=== PATIENT | male | born 1940 | race Caucasian/White ===

== ENCOUNTER → 2016-12-15 | Outpatient (CLI) | payer OTHER ==
[~2016-12-15] MED LIST: ASPI81TA28 PO; HYDR25TA4 PO; METO-217 PO; OMEGCAP2 PO; PERFLUTREN LIPID MICROSPHERE (DEFINITY) IV ONE; PRED1SUS3; SIMV10TA2 PO; TPRSR/50 PO
--- NOTE | 2016-12-15 12:32 | EXERCISE STRESS ECHO ---
*NOTICE TO RECEIVING DEMOCRAT AGENCY This information is strictly Confidential and protected under [place] law. [place] law prohibits you from making any further disclosure of this information unless further disclosure is expressly permitted by the written consent of the person to whom it pertains or is authorized by law. A general authorization for the release of medical or other information is not sufficient for this purpose. Hospital accepts no responsibility if the information is made available to any other person, INCLUDING THE PATIENT. Interpretation Summary * Name: EFRAÍN NEWTON Study Date: 12/15/2016 09:38 AM BP: 200/90 mmHg * Patient Location: [facility] HR: 48 * : 1940 (M/d/yyyy) Gender: Male Height: 65 in * Age: 76 yrs Ethnicity: CA Weight: 175 lb * Ordering Physician: Enrique Kelly * Referring Physician: Enrique Kelly * Performed By: Adrianna Cueva RDCS * * Reason For Study: CAD * BSA: 1.9 m2 * History: CAD * -- Conclusions -- * Normal stress echocardiogram at 9.1 METS and a peak heart rate of 70% maximum predicted. * No exercise induced chest pain. * No ECG changes over the baseline abnormality. * Baseline echocardiogram notes normal left ventricular systolic function, moderate aortic stenosis, and mild aortic insufficiency. Procedure Details * ECHOEX, CPT #21751 * A contrast injection of Definity was performed to improve assessment of LV function. * Contrast was injected into an intravenous site in the left arm. * One vial of Definity ultrasound contrast was diluted in normal saline to a total volume of 10 ml. A total of '4' ml of solution was administered during imaging. * Lot # [id number] of Definity utilized for procedure. * Expiration date 1 DEC 19. * The attending nurse who injected the contrast agent was MARY MACHUCA RN. Left Ventricle * The left ventricle is normal in size. * There is moderate concentric left ventricular hypertrophy. * Ejection Fraction = 50-55%. * Resting wall motion: Normal. Stress wall motion: Appropriate increase in Left ventricular systolic function and decrease in cavity size. No stress induced segmental wall motion abnormalities. Right Ventricle * The right ventricle is not well visualized. * The right ventricular systolic function is normal as assessed by tricuspid annular plane systolic excursion (TAPSE) (normal >1.5 cm). Atria * The left atrial size is normal. * Right atrial size is normal. * There is no evidence of atrial septal defect, but resolution does not allow assessment for a patent foramen ovale. * Lipomatous hypertrophy of the interatrial septum is noted. Mitral Valve * The mitral valve is grossly normal. * There is no mitral valve stenosis. * There is mild mitral regurgitation. Tricuspid Valve * The tricuspid valve is not well visualized, but is grossly normal. * There is no tricuspid stenosis. * There is trace tricuspid regurgitation. Aortic Valve * The aortic valve is trileaflet. * Moderate valvular aortic stenosis. * Mild aortic regurgitation. Pulmonic Valve * The pulmonary valve is not well seen, but the Doppler examination is normal without significant regurgitation or stenosis. Great Vessels * The aortic root is normal size. * The pulmonary artery is not well visualized, but is probably normal size. Pericardium * There is no pericardial effusion. Stress Parameters * Baseline ECG notes normal sinus rhythm and LVH with repolarization changes. * No arrhythmia were noted with stress. * The stress portion of this study was personally supervised by the undersigned interpreting physician. * Rest heart rate was '48' BPM. * Rest blood pressure was '200/90' * Maximum heart rate achieved was 101 bpm. * Maximum heart rate was 70 % of maximum age-predicted heart rate. * Maximum blood pressure was '200/90' * Total exercise time was '7:23' * Maximum exercise MET level achieved was '9.10' METS * Maximum treadmill speed was '3.40' miles per hour. * Maximum treadmill elevation was '14.00'% grade. * Exercise was terminated due to 'FATIGUE' MMode 2D Measurements and Calculations IVSd 1.2 cm IVSs 1.5 cm LVIDd 4.6 cm LVIDs 3.4 cm LVPWd 1.4 cm LVPWs 1.8 cm IVS/LVPW 0.88 FS 25.7 % EDV(Teich) 99.4 ml ESV(Teich) 49.1 ml EF(Teich) 50.6 % EDV(cubed) 100.0 ml ESV(cubed) 41.0 ml EF(cubed) 59.0 % % IVS thick 26.2 % % LVPW thick 29.4 % LV mass(C)d 229.1 grams LV mass(C)dI 122.6 grams/m\S\2 LV mass(C)s 220.4 grams LV mass(C)sI 117.9 grams/m\S\2 SV(Teich) 50.3 ml SI(Teich) 26.9 ml/m\S\2 SV(cubed) 58.9 ml SI(cubed) 31.5 ml/m\S\2 Ao root diam 3.4 cm Ao root area 9.2 cm\S\2 LA dimension 3.2 cm LA/Ao 0.93 LVOT diam 2.1 cm LVOT area 3.6 cm\S\2 LVAd ap4 38.7 cm\S\2 LVLd ap4 8.9 cm EDV(MOD-sp4) 140.1 ml EDV(sp4-el) 143.0 ml LVAs ap4 25.5 cm\S\2 LVLs ap4 7.8 cm ESV(MOD-sp4) 71.5 ml ESV(sp4-el) 71.0 ml EF(MOD-sp4) 49.0 % EF(sp4-el) 50.3 % SV(MOD-sp4) 68.6 ml SI(MOD-sp4) 36.7 ml/m\S\2 SV(sp4-el) 72.0 ml SI(sp4-el) 38.5 ml/m\S\2 Doppler Measurements and Calculations Ao V2 max 263.3 cm/sec Ao max PG 27.7 mmHg Ao max PG (full) 26.1 mmHg Ao V2 mean 188.1 cm/sec Ao mean PG 15.5 mmHg Ao mean PG (full) 14.6 mmHg Ao V2 VTI 72.2 cm CHRISTOPHER(I,A) 0.88 cm\S\2 CHRISTOPHER(I,D) 0.88 cm\S\2 CHRISTOPHER(V,A) 0.89 cm\S\2 CHRISTOPHER(V,D) 0.89 cm\S\2 AI max ashish 367.7 cm/sec AI max PG 54.1 mmHg AI dec slope 156.0 cm/sec\S\2 AI P1/2t 690.5 msec LV V1 max PG 1.7 mmHg LV V1 mean PG 0.89 mmHg LV V1 max 64.5 cm/sec LV V1 mean 44.3 cm/sec LV V1 VTI 17.5 cm SV(Ao) 661.4 ml SI(Ao) 353.9 ml/m\S\2 SV(LVOT) 63.4 ml SI(LVOT) 33.9 ml/m\S\2
== END | disposition home or self-care (01) ==
LOC: C.CPL 09:15
PROVIDERS: ATTEND Family Medicine
DX: R06.00 Dyspnea, unspecified (principal); I35.1 Nonrheumatic aortic (valve) insufficiency; I25.10 Atherosclerotic heart disease of native coronary artery without angina pectoris

== ENCOUNTER → 2017-05-06 | Outpatient (CLI) | payer OTHER ==
[~2017-05-06] MED LIST changes: +ATOR-22 PO; +LISI-725 PO; +LPT40 PO; -PERFLUTREN LIPID MICROSPHERE (DEFINITY) IV ONE; +PLV75 PO
--- NOTE | 2017-05-13 10:52 | CODING QUERY MEDICAL NECESSITY ---
SUPPORTING DIAGNOSIS NEEDED Dr. Kelly, A supporting diagnosis is required for the test/procedure performed on this patient in order for us to be reimbursed by the patient's insurance. Please provide a supporting diagnosis for the following test/procedure listed below next to the test name along with your signature. *If there is no additional diagnosis for this patient that would support the following test/procedure please document that below next to the test/procedure. Test(s)/Procedure(s) that require a supporting diagnosis: * 13214 PSA DIAGNOSIS: DATE OF SERVICE: 05/06/17 Provider Signature: Date: Thank you Wenceslao Rodriguez [facility] Information Management Once completed, please kindly fax back to [phone] For questions please call [phone]
== END | disposition home or self-care (01) ==
LOC: C.LAB1850 09:02
PROVIDERS: ATTEND Family Medicine
DX: R73.09 Other abnormal glucose (principal); N40.0 Benign prostatic hyperplasia without lower urinary tract symptoms

== ENCOUNTER → 2017-08-14 | Outpatient (CLI) | payer OTHER ==
[~2017-08-14] MED LIST changes: -ATOR-22 PO; -PRED1SUS3; -SIMV10TA2 PO; -TPRSR/50 PO
[2017-08-14 11:37] LABS: WHITE BLOOD COUNT 5.76 K/uL (4.8-10.8)
[2017-08-14 11:38] LABS: HEMATOCRIT 37.4 % (42-52); MEAN CELL VOLUME 89.7 fL (80-100); MEAN CORPUSCULAR HGB CONC 33.4 g/dl (32-36); MEAN PLATELET VOLUME 10.3 fL (7.4-10.4); PLATELET COUNT 271 K/uL (130-400); RED BLOOD COUNT 4.17 M/uL (4.7-6.1)
[2017-08-14 11:45] LABS: PARTIAL THROMBOPLASTIN RATIO 1.1; PROTHROMBIN TIME (PATIENT) 11.2 SECONDS (9.0-12.0)
[2017-08-14 12:07] LABS: BLOOD UREA NITROGEN 24 mg/dl (7-18); BUN/CREATININE RATIO 14.9 (10-20); CALCIUM 8.8 mg/dl (8.5-10.1); CARBON DIOXIDE 28 mmol/L (21-32); CHLORIDE 104 mmol/L (98-107); GLUCOSE 72 mg/dl (70-99); POTASSIUM 3.9 mmol/L (3.5-5.1); SODIUM 137 mmol/L (136-145)
== END | disposition home or self-care (01) ==
LOC: C.LAB 10:58
PROVIDERS: ATTEND Internal Medicine Cardiovascular Disease
DX: Z01.818 Encounter for other preprocedural examination (principal)

== ENCOUNTER → 2017-11-09 | Outpatient (CLI) | payer OTHER ==
[2017-11-09 10:07] LABS: BASO % 0.5 %; BASO ABS # 0.03 K/uL (0-0.2); EOS % 7.6 %; EOS ABS # 0.46 K/uL (0-0.5); HEMATOCRIT 34.5 % (42-52); HEMOGLOBIN 11.4 g/dL (14.0-18.0); IG# 0.01 K/uL (0.00-0.02); LYMPH % 26.9 %; LYMPH ABS # 1.63 K/uL (1.2-3.4); MEAN CELL VOLUME 90.8 fL (80-100); MEAN PLATELET VOLUME 9.7 fL (7.4-10.4); MONO % 12.6 %; MONO ABS # 0.76 K/uL (0.11-0.59); NEUT % 52.2 %; NEUT ABS # 3.16 K/uL (1.4-6.5); PLATELET COUNT 241 K/uL (130-400); RED CELL DISTRIBUTION WIDTH SD 46.4 fL (36.4-46.3); WHITE BLOOD COUNT 6.05 K/uL (4.8-10.8)
[2017-11-09 10:36] LABS: HEMOGLOBIN A1C 5.5 % (4.5-5.6)
[2017-11-09 11:52] LABS: ALBUMIN 3.2 gm/dl (3.4-5.0); ALT/SGPT 39 U/L (12-78); AST/SGOT 28 U/L (15-37); BLOOD UREA NITROGEN 25 mg/dl (7-18); CALCIUM 8.9 mg/dl (8.5-10.1); CARBON DIOXIDE 27 mmol/L (21-32); CHOLESTEROL 128 mg/dl (0-200); CREATININE 1.67 mg/dl (0.60-1.40); GLUCOSE 90 mg/dl (70-99); POTASSIUM 3.7 mmol/L (3.5-5.1); SODIUM 134 mmol/L (136-145); TOTAL PROTEIN 7.7 gm/dl (6.4-8.2); URIC ACID 6.9 mg/dl (2.6-7.2)
[2017-11-09 12:01] LABS: ALKALINE PHOSPHATASE 108 U/L (45-117); LDL CHOLESTEROL CALCULATED 64 mg/dl; TRANSFERRIN 172 mg/dl (200-360)
== END | disposition home or self-care (01) ==
LOC: C.LAB1850 09:21
PROVIDERS: ATTEND Family Medicine
DX: R73.09 Other abnormal glucose (principal); E55.9 Vitamin D deficiency, unspecified; D51.9 Vitamin B12 deficiency anemia, unspecified; E78.9 Disorder of lipoprotein metabolism, unspecified; R53.83 Other fatigue

== ENCOUNTER → 2018-05-05 | Outpatient (CLI) | payer OTHER ==
[2018-05-05 10:35] LABS: BASO % 0.7 %; BASO ABS # 0.04 K/uL (0-0.2); EOS % 5.4 %; EOS ABS # 0.29 K/uL (0-0.5); HEMATOCRIT 37.9 % (42-52); HEMOGLOBIN 12.8 g/dL (14.0-18.0); IG# 0.01 K/uL (0.00-0.02); LYMPH % 23.4 %; LYMPH ABS # 1.27 K/uL (1.2-3.4); MEAN CELL VOLUME 89.4 fL (80-100); MEAN CORPUSCULAR HEMOGLOBIN 30.2 pg (25-34); MEAN CORPUSCULAR HGB CONC 33.8 g/dl (32-36); MEAN PLATELET VOLUME 10.4 fL (7.4-10.4); MONO % 11.3 %; MONO ABS # 0.61 K/uL (0.11-0.59); PLATELET COUNT 230 K/uL (130-400); RED CELL DISTRIBUTION WIDTH SD 42.6 fL (36.4-46.3); WHITE BLOOD COUNT 5.42 K/uL (4.8-10.8)
[2018-05-05 10:59] LABS: BLOOD UREA NITROGEN 21 mg/dl (7-18); CREATININE 1.53 mg/dl (0.60-1.40); GLUCOSE 89 mg/dl (70-99)
[2018-05-05 11:00] LABS: ALBUMIN 3.4 gm/dl (3.4-5.0); ALKALINE PHOSPHATASE 78 U/L (45-117); ALT/SGPT 32 U/L (12-78); AST/SGOT 29 U/L (15-37); CALCIUM 8.5 mg/dl (8.5-10.1); CARBON DIOXIDE 28 mmol/L (21-32); CHOLESTEROL 116 mg/dl (0-200); LDL CHOLESTEROL CALCULATED 50 mg/dl; POTASSIUM 3.8 mmol/L (3.5-5.1); SODIUM 134 mmol/L (136-145); TOTAL PROTEIN 7.4 gm/dl (6.4-8.2); TRANSFERRIN 165 mg/dl (200-360); URIC ACID 7.8 mg/dl (2.6-7.2)
[2018-05-05 11:22] LABS: HEMOGLOBIN A1C 5.5 % (4.5-5.6)
--- NOTE | 2018-05-27 13:34 | CODING QUERY NO DIAGNOSIS ---
SUPPORTING DIAGNOSIS NEEDED A supporting diagnosis is required for the test/procedure performed on this patient in order for us to be reimbursed by the patient's insurance. Please provide a supporting diagnosis for the following test/procedure listed below next to the test name along with your signature. *If there is no additional diagnosis for this patient that would support the following test/procedure please document that below next to the test/procedure. Test(s)/Procedure(s) that require a supporting diagnosis: DOS: 05/05/18 * CMP DIAGNOSIS: * CREATINE PHOSPHOKINASE DIAGNOSIS: * LIPID PROFILE FASTING DIAGNOSIS: * PSA DIAGNOSIS: * T4 FREE DIAGNOSIS: * TOTAL IRON BINDING CAPACITY DIAGNOSIS: * TRANSFERRIN % SAT + TRANSFRN DIAGNOSIS: * TSH * URIC ACID * HEMOGLOBIN A1C * CBC W/ AUTO DIFF * VITAMIN B12 * VITAMIN D, 25- HYDROXY Provider Signature: Date: Thank you Rosemarie [facility] Information Management Once completed, please kindly fax back to [phone] For questions please call [phone]
== END | disposition home or self-care (01) ==
LOC: C.LAB1850 09:01
PROVIDERS: ATTEND Family Medicine
DX: Z01.89 Encounter for other specified special examinations (principal)

== ENCOUNTER 2023-02-28 11:20 | Observation (INO) ==
[2023-02-28] MEDS ORDERED: FAMOTIDINE 20MG IV PUSH 20 MG/5 ML SYR IV STA (11:53)
[2023-02-28] MEDS ORDERED: ONDANSETRON INJ 2 MG/ML 2 ML VIAL IV STA (11:53)
[2023-02-28] MEDS ORDERED: SODIUM CHLORIDE 0.9% 1000ML 1,000 ML IV ONE ×2 (11:53→13:47)
[2023-02-28 12:48] LABS: Hematocrit (blood only) 37.2 % (42.0-52.0); Hemoglobin 12.9 g/dl (14.0-18.0); Mean Corpuscular Hemoglobin 31.5 pg (25.0-34.0); Mean Corpuscular Hgb Conc 34.7 g/dL (32.0-36.0); Mean Platelet Volume 10.3 fL (9.4-12.4); Platelet Count 318 K/uL (130-400); RDW Standard Deviation 42.9 fL (36.4-46.3); Red Blood Count 4.09 M/uL (4.70-6.10); White Blood Count 20.46 K/ul (4.8-10.8)
[2023-02-28 12:53] LABS: Albumin Globulin Ratio 1.2 (0.9-2); Albumin Level 4.3 gm/dl (3.4-5.0); BUN Creatinine Ratio 9.3 (10-20); Bilirubin,Total 1.1 mg/dl (0.2-1.0); Calcium 9.6 mg/dl (8.6-10.3); Creatinine Clr Calc Pharmacy 19.5 ml/min; Est GFR (African American) 28.2 ml/min; Est GFR (Non-African American) 24.4 ml/min; Globulin 3.7 gm/dl (2.5-4.0); Magnesium 1.6 mg/dl (1.7-2.4); Potassium 3.9 mmol/L (3.5-5.1)
[2023-02-28 13:09] LABS: Basophils # (auto) 0.05 K/uL (0-0.2); Basophils % (auto) 0.2 %; Echinocytes 1+; Eosinophils # (auto) 0.01 K/uL (0-0.50); Immature Granulocytes # (auto) 0.14 K/uL (0.01-0.20); Immature Granulocytes % (auto) 0.7 %; Lymphocytes # (auto) 0.31 K/uL (1.2-3.4); Lymphocytes % (auto) 1.5 %; Monocytes # (auto) 0.49 K/uL (0.11-0.59); Monocytes % (auto) 2.4 %; Neutrophils # (auto) 19.46 K/uL (1.40-6.50); Neutrophils % (auto) 95.2 %
[2023-02-28] MEDS ORDERED: MAGNESIUM SULFATE / D5W 1 GM/100 ML BAG IV STA (13:15)
[2023-02-28 13:26] LABS: Adenovirus PCR Not Detected (NotDetected); Bordetella parapertussis PCR Not Detected (NotDetected); Bordetella pertussis PCR Not Detected (NotDetected); Chlamydia pneumoniae PCR Not Detected (NotDetected); Coronavirus 229E PCR Not Detected (NotDetected); Coronavirus CoV-2 (COVID19)PCR Not Detected (NotDetected); Coronavirus HKU1 PCR Not Detected (NotDetected); Coronavirus NL63 PCR Not Detected (NotDetected); Coronavirus OC43PCR Not Detected (NotDetected); Human Metapneumovirus PCR Not Detected (NotDetected); Influenza A PCR Not Detected (NotDetected); Influenza B PCR Not Detected (NotDetected); Mycoplasma pneumoniae PCR Not Detected (NotDetected); Parainfluenza Virus 1 PCR Not Detected (NotDetected); Parainfluenza Virus 2 PCR Not Detected (NotDetected); Parainfluenza Virus 3 PCR Not Detected (NotDetected); Parainfluenza Virus 4 PCR Not Detected (NotDetected); Respiratory Syncytial VirusPCR Not Detected (NotDetected); Rhinovirus/Enterovirus PCR Not Detected (NotDetected)
--- NOTE | 2023-02-28 13:41 | CT Scan Report ---
ABDOMEN AND PELVIS CT WITHOUT CONTRAST CT DOSE: 267.89 mGy.cm HISTORY: Nausea. Vomiting. Diarrhea. Generalized abdominal pain. TECHNIQUE: Multiaxial CT images of the abdomen and pelvis were performed without contrast. A dose lo wering technique was utilized adhering to the principles of ALARA. COMPARISON STUDY: None. FINDINGS: Mild interstitial thickening at the lung bases which is likely chronic. No pneumoperitoneum . No pneumatosis. No acute fractures identified. There are poststernotomy changes. The heart is mildl y enlarged. An aortic valve prosthesis is noted. The unenhanced liver, gallbladder, spleen, adrenal g lands, and pancreas are unremarkable. Moderate calcified plaque within the normal caliber abdominal a josie. No renal or ureteral stones. No hydronephrosis. Bilateral renal hypodense lesions are incomplet zena characterized on this study but statistically represent cysts. Dominant lesion within the left ki dney measures approximately 3 cm. No retroperitoneal or mesenteric lymphadenopathy. No pelvic lymphad enopathy or pelvic free fluid. Mild bladder wall thickening is likely due to underdistention or from the mildly enlarged prostate gland. Suboptimal evaluation for bowel pathology due to the lack of intr avenous and oral contrast. However, there is no definite bowel wall thickening or obstruction. Normal appendix. Colonic diverticulosis. No evidence for acute diverticulitis. Nondilated fluid-filled loop s of large and small bowel seen throughout the abdomen. This favors a gastroenteritis/diarrheal illne ss. IMPRESSION: 1. Nondilated fluid-filled loops of large and small bowel seen throughout the abdomen. This favors a gastroenteritis/diarrheal illness. 2. No evidence for a bowel obstruction. 3. Normal appendix. 4. Colonic diverticulosis. No evidence for acute diverticulitis. 5. Additional findings as described above. ACT 112: Negative or not required by law. Electronically signed by: Brennen Dorman M.D. 02/28/2023 1:39 PM
[2023-02-28] MEDS ORDERED: PIPERACILLIN/TAZOBACTAM 4.5 GM/120 ML BAG IV ONE (13:47)
[2023-02-28 13:59] LABS: Adenovirus F 40/41 PCR Not Detected (NotDetected); Astrovirus PCR Not Detected (NotDetected); Campylobacter PCR Not Detected (NotDetected); Cryptosporidium PCR Not Detected (NotDetected); Cyclospora cayetanensis PCR Not Detected (NotDetected); Entamoeba histolytica PCR Not Detected (NotDetected); Enteroaggregative E.coli(EAEC) Not Detected (NotDetected); Enteropathogenic E.coli (EPEC) Not Detected (NotDetected); Enterotoxigenic E.coli (ETEC) Not Detected (NotDetected); Giardia lamblia PCR Not Detected (NotDetected); Norovirus GI/GII PCR Not Detected (NotDetected); Plesiomonas shigelloides PCR Not Detected (NotDetected); Rotavirus A PCR Not Detected (NotDetected); Salmonella PCR Not Detected (NotDetected); Sapovirus PCR Not Detected (NotDetected); Shiga-like Toxin E.coli (STEC) Not Detected (NotDetected); Shigella/Enteroinvasive E.coli Not Detected (NotDetected); Vibrio cholerae PCR Not Detected (NotDetected); Vibrio species PCR Not Detected (NotDetected); Yersinia enterocolitica PCR Not Detected (NotDetected)
--- NOTE | 2023-02-28 14:30 | Emergency Department Note ---
Impression & Plan Intractable nausea and vomiting, Gastroenteritis, SIRS (systemic inflammatory response syndrome), Acute on chronic renal insufficiency, Hypomagnesemia ED Provider Note NAME: EFRAÍN NEWTON AGE: 83 SEX: M ARRIVES VIA: Walk-In INFORMANT: Patient ED PROVIDER(S): Philippe Diaz MD CHIEF COMPLAINT: Nausea, vomiting, diarrhea PLAN: Disposition: Admit MEDICAL DECISION MAKING: The patient is a pleasant 83-year-old gentleman with a past medical history of CAD, GERD, hyperlipidemia, aortic valve replacement who presents to the emergency department via walk-in, accompanied by family for evaluation of cute onset nausea, vomiting and diarrhea that began last night and has continued. The patient reports feeling healthy prior to today. They do note he had several days of similar symptoms over a week ago that resolved uneventfully. He otherwise denies any new cough. Denies chest pain or shortness of breath. He denies any recent antibiotics. On arrival the patient is uncomfortable with heart rate in the 90s and blood pressure hypotensive 80s/60s which was fluid responsive. He appears clinically dry. Generalized abdominal discomfort without discrete tenderness. EKG demonstrates branch block with prior comparison in 2019. No sgarbossa criteria. WBC 20.4K with neutrophil predominance but no left shift. H/H similar to prior. Platelets within normal limits. Chemistry with bicarbonate of 20 and otherwise no significant metabolic acidosis. Creatinine is 2.3 uptrending from December of this year. Magnesium 1.6 with repletion provided. Total bili 1.1, nonspecific and LFTs otherwise normal. Lipase mildly above normal at 96, nonspecific. Respiratory viral panel/[employer] was negative. The patient's stool PCR panel was also negative. CT of PCR was negative. CT abdomen pelvis was performed and demonstrates nonspecific findings of nondilated fluid-filled loops of large and small bowel consistent with gastroenteritis. Upon reevaluation the patient did feel some improvement after IV fluid hydration, Pepcid and Zofran. Patient had received 30cc/kg per ideal body weight. Given the patient's concerning presentation on arrival with his leukocytosis which may simply be reactive from vomiting they did agree with plan for admission for further management. Blood cultures were drawn out of caution and empiric dose of Zosyn ordered. Procalcitonin also returned mildly elevated at 1.28 suggestive of component of bacterial infection. Case was discussed with Dr. Soto, [facility] hospitalist, who will evaluate the patient for admission. Triage Nursing notes reviewed and agree them. Prior/outside medical records reviewed Vital Signs: reviewed Differential diagnosis: Gastroenteritis, food borne illness, infections, appendicitis, diverticulitis, inflammatory bowel disease, obstruction, GI bleed, biliary pathology, volvulus, as well as other pathologies. ER treatment provided: See below. Diagnostics interpreted by me: ECG: Sinus rhythm with first-degree AV block, 71 bpm, no ectopy, left bundle branch block, no sgarbossa criteria. QRS 162, QTc 495. Cardiac Monitoring: An order for continuous cardiac monitoring was placed and demonstrated Sinus rhythm with first-degree AV block, 71 bpm, no ectopy. Laboratory studies: See below Imaging studies: See below Consultation(s): Case was discussed with Dr. Soto, [facility] hospitalist, who will evaluate the patient for admission. HPI: The patient is a pleasant 83-year-old gentleman with a past medical history of CAD, GERD, hyperlipidemia, aortic valve replacement who presents to the emergency department via walk-in, accompanied by family for evaluation of cute onset nausea, vomiting and diarrhea that began last night and has continued. The patient reports feeling healthy prior to today. They do note he had several days of similar symptoms over a week ago that resolved uneventfully. He otherwise denies any new cough. Denies chest pain or shortness of breath. He denies any recent antibiotics. ROS: See above HPI for pertinent positives & negatives. A total of 10 systems reviewed and were otherwise negative. VITALS:See Below PHYSICAL EXAMINATION: GENERAL: Awake, alert, uncomfortable-appearing, in no distress HENT: Normocephalic, atraumatic. Oropharynx with dry mucous membranes and otherwise unremarkable. EYES: Normal conjunctiva. Sclera non-icteric. NECK: Supple. No nuchal rigidity. FROM. No JVD. RESPIRATORY: Clear to auscultation. CARDIAC: Regular rate, normal rhythm. Extremities warm and well perfused. Pulses equal. ABDOMEN: Soft, non-distended. Generalized abdominal discomfort without discrete tenderness. No rebound or guarding. No masses. RECTAL: Deferred. MUSCULOSKELETAL: Chest examination reveals no tenderness. The back is symmetrical on inspection without obvious abnormality. There is no CVA t enderness to palpation. No joint edema. LOWER EXTREMITIES: Calves are equal size bilaterally and non-tender. No edema. No discoloration. NEURO: Normal sensorium. No sensory or motor deficits noted. SKIN: No rash or jaundice noted. ED COURSE: Critical Care: I have personally spent greater than 35 minutes of critical care time in the direct management of this patient. This includes bedside care, interpretation of diagnostic studies, and testing, discussion with consultants, patient, and family members, and other required patient management activities. This 35 minutes is in excess of all separately billable procedures. Philippe Diaz MD Past Med/Surg History Medical History CAD (coronary artery disease) stent x 1 (20+ years ago), CABG x 3 (2017) Chronic renal insufficiency CKD (chronic kidney disease), stage III Head injury Heart disease High blood pressure History of aortic valve replacement hx aortic stenosis History of atrial fibrillation s/p CABG; no known recurrence History of gout Left inguinal hernia Multiple fractures of ribs of right side Myocardial infarction Renal insufficiency Seborrheic keratosis Surgical History H/O heart bypass surgery CABG x 3 + AVR (2017) History of cardiac cath 20+ years ago: stent x 1; 2017: subsequent CABG + AVR History of cataract surgery R/L History of colonoscopy with polypectomy History of hemorrhoidectomy History of hernia surgery History of surgery on extremity X2; RIGHT LEG/+ HARDWARE Hx of inguinal hernia surgery (08/30/19) Left Laparoscopic Inguinal Hernia Repair Dr. Warner 08/30/19 Family History Father Myocardial infarction ?? Prostate cancer Stroke, Onset Age: 86 Son Prostate cancer Mother Dementia Brother Stroke Brother Hypertension Other Family history of cancer Denies family history of Ovarian cancer Breast cancer Colorectal cancer Social History Smoking Status: Former smoker Tobacco Type: Cigarettes Age Started Using Tobacco: 17; Age Quit Using Tobacco: 44; packs per day: 0.5; Second Hand Exposure: No; Do You Dip or Chew Tobacco: No; Hx Alcohol Use: Yes Alcohol type: beer Alcohol Intake Frequency: 2-3 x/Week Hx Substance Use: No Preferred Language: Chinese Communication Ability: Effective Visual Impairment: Limited Hearing Ability: Normal Flyer Maker Required: No Beliefs That Will Affect Care: None marital status: Current Living Situation: Spouse current occupational status: retired How many Children do You have: 4 Feels Safe at Home: Yes Childhood Exposure to Second-Hand Smoke: Yes caffeine: Yes Dental Care, Regularly: Yes Physical Activity Frequency: Daily Physical Activity Frequency Comment: treadmill 20 mins daily Seatbelt Use: always Sunscreen Use: No Assistive Devices: None Allergies Allergies Allergy/AdvReac Type Severity Reaction Status Date / Time latex Allergy Intermediate Rash Verified 02/19/23 10:06 clarithromycin [From Biaxin] Allergy Mild GI symptoms Verified 02/19/23 10:06 codeine AdvReac Intermediate [place] Verified 02/19/23 10:06 "nervous" lactose AdvReac Intermediate diarrhea, Verified 02/19/23 10:06 abd cramping simvastatin [From Zocor] AdvReac Intermediate Myalgias Verified 02/19/23 10:06 Home Meds Home Medications Medication Instructions Recorded Confirmed garlic 1,000 mg capsule 1,000 mg PO DAILY 07/18/19 02/19/23 coenzyme Q10 100 mg capsule 100 mg PO QAM 07/19/19 02/19/23 aspirin 81 mg tablet,delayed 81 mg PO QPM 08/09/19 02/19/23 release (Aspir-) Previous Rx's Medication Instructions Recorded allopurinol 100 mg tablet 100 mg PO DAILY #90 tabs 06/18/22 pantoprazole 40 mg tablet,delayed 40 mg PO DAILY #90 tabs 06/18/22 release atorvastatin 40 mg tablet 40 mg PO QPM #90 tabs 11/03/22 amlodipine 10 mg tablet 10 mg PO QAM #90 tabs 12/22/22 hydrochlorothiazide 12.5 mg tablet 12.5 mg PO DAILY #90 tabs 12/22/22 metoprolol succinate 50 mg 75 mg PO QAM #135 tabs 12/22/22 tablet,extended release 24 hr Results & Data (ED) Vital Signs Vital Signs - 24 hr 02/28/23 11:32 02/28/23 12:15 02/28/23 12:15 Temperature 36.4 C L Temperature Source Temporal Artery Scan Pulse Rate 81 Pulse Rate [Apical] 77 Respiratory Rate 20 20 Respiratory Effort / Characteristics Non-Labored Spontaneous Respiratory Depth Normal Blood Pressure 85/60 L Blood Pressure [Right Arm] 135/58 L Blood Pressure Mean 68 Blood Pressure Mean [Right Arm] 83 Pulse Oximetry 97 99 99 Oxygen Delivery Method Room Air Room Air Room Air Sepsis Recent Fever Within 48 Hours No Sepsis New/Unexplained Change in Mental Status No Sepsis Action Taken by Nursing No Action Required 02/28/23 12:24 02/28/23 14:01 Temperature Temperature Source Pulse Rate 65 Pulse Rate [Apical] 64 Respiratory Rate 16 Respiratory Effort / Characteristics Respiratory Depth Blood Pressure Blood Pressure [Right Arm] 128/62 Blood Pressure Mean Blood Pressure Mean [Right Arm] 84 Pulse Oximetry 97 Oxygen Delivery Method Room Air Sepsis Recent Fever Within 48 Hours Sepsis New/Unexplained Change in Mental Status Sepsis Action Taken by Nursing Laboratory Data Attestation: I reviewed the patient's lab results. 02/28/23 12:15 02/28/23 12:15 Lab Results 02/28/23 02/28/23 02/28/23 Range/Units 12:15 12:15 12:15 WBC 20.46 H (4.8-10.8) K/ul RBC 4.09 L (4.70-6.10) M/uL Hgb 12.9 L (14.0-18.0) g/dl Hct 37.2 L (42.0-52.0) % MCV 91.0 (80.0-100.0) fL MCH 31.5 (25.0-34.0) pg MCHC 34.7 (32.0-36.0) g/dL RDW Std Deviation 42.9 (36.4-46.3) fL RDW Coeff of Susan 13.0 (11.5-14.5) % Plt Count 318 (130-400) K/uL MPV 10.3 (9.4-12.4) fL Immature Gran % (Auto) 0.7 % Neut % (Auto) 95.2 % Lymph % (Auto) 1.5 % [place] % (Auto) 2.4 % Eos % (Auto) 0.0 % Baso % (Auto) 0.2 % Neut # (Auto) 19.46 H (1.40-6.50) K/uL Lymph # (Auto) 0.31 L (1.2-3.4) K/uL [place] # (Auto) 0.49 (0.11-0.59) K/uL Eos # (Auto) 0.01 (0-0.50) K/uL Baso # (Auto) 0.05 (0-0.2) K/uL Immature Gran # (Auto) 0.14 (0.01-0.20) K/uL Echinocytes 1+ Sodium 131 L (136-145) mmol/L Potassium 3.9 (3.5-5.1) mmol/L Chloride 104 (98-107) mmol/L Carbon Dioxide 20 L (21-32) mmol/L Anion Gap 7 (3-11) BUN 22 (6-23) mg/dl Creatinine 2.36 H (0.6-1.4) mg/dl Est Cr Clr Drug Dosing 19.5 ml/min Est GFR ( Amer) 28.2 ml/min Est GFR (Non-Af Amer) 24.4 ml/min BUN/Creatinine Ratio 9.3 L (10-20) Glucose 127 H (70-99(Fasting)) mg/dl Lactate (0.4-2.0) mmol/L Calcium 9.6 (8.6-10.3) mg/dl Magnesium 1.6 L (1.7-2.4) mg/dl Total Bilirubin 1.1 H (0.2-1.0) mg/dl AST 24 (13-39) U/L ALT 18 (7-52) U/L Alkaline Phosphatase 77 (34-104) U/L Total Protein 8.0 (6.0-8.3) gm/dl Albumin 4.3 (3.4-5.0) gm/dl Globulin 3.7 (2.5-4.0) gm/dl Albumin/Globulin Ratio 1.2 (0.9-2) Lipase 96 H (11-82) U/L Procalcitonin (0-0.5) ng/ml Stl C. cayetanensis PCR (NotDetected) Stool Rotavirus A PCR (NotDetected) Stl Adenov F 40/41 PCR (NotDetected) Stool Astrovirus (PCR) (NotDetected) Stool Campylobacter PCR (NotDetected) Stl C. diff Tox B Gene Negative Cdiff Gene (Neg) Stool Cryptosporidium PCR (NotDetected) Stl E.coli Shiga Tox PCR (NotDetected) Stl Enterotoxigenic E PCR (NotDetected) Stool EPEC (PCR) (NotDetected) Stool EAEC (PCR) (NotDetected) Stl E. histolytica PCR (NotDetected) Stool Giardia Lamblia PCR (NotDetected) Stool Salmonella PCR (NotDetected) Stool Sapovirus (PCR) (NotDetected) Stl P. shigelloides PCR (NotDetected) Stl Shigella/EIEC PCR (NotDetected) St Y.enterocolitica PCR (NotDetected) Stool Vibrio (PCR) (NotDetected) Stl Vibrio cholerae PCR (NotDetected) Stl Norovirus GI/GII PCR (NotDetected) Adenovirus (PCR) (NotDetected) B. pertussis DNA (PCR) (NotDetected) B.parapertussis DNA PCR (NotDetected) C. pneumoniae DNA (PCR) (NotDetected) Coronavirus OC43 (PCR) (NotDetected) Coronavirus HKU1 (PCR) (NotDetected) Coronavirus 229E (PCR) (NotDetected) SARS-CoV-2 (PCR) (NotDetected) Coronavirus NL63 (PCR) (NotDetected) Human Metapneumovir PCR (NotDetected) Influenza Type A (PCR) (NotDetected) Influenza Type B (PCR) (NotDetected) M. pneumoniae (PCR) (NotDetected) Parainfluenza 1 (PCR) (NotDetected) Parainfluenza 2 (PCR) (NotDetected) Parainfluenza 3 (PCR) (NotDetected) Parainfluenza 4 (PCR) (NotDetected) RSV (PCR) (NotDetected) Entero/Rhino (PCR) (NotDetected) 02/28/23 02/28/23 02/28/23 Range/Units 12:15 12:15 12:22 WBC (4.8-10.8) K/ul RBC (4.70-6.10) M/uL Hgb (14.0-18.0) g/dl Hct (42.0-52.0) % MCV (80.0-100.0) fL MCH (25.0-34.0) pg MCHC (32.0-36.0) g/dL RDW Std Deviation (36.4-46.3) fL RDW Coeff of Susan (11.5-14.5) % Plt Count (130-400) K/uL MPV (9.4-12.4) fL Immature Gran % (Auto) % Neut % (Auto) % Lymph % (Auto) % [place] % (Auto) % Eos % (Auto) % Baso % (Auto) % Neut # (Auto) (1.40-6.50) K/uL Lymph # (Auto) (1.2-3.4) K/uL [place] # (Auto) (0.11-0.59) K/uL Eos # (Auto) (0-0.50) K/uL Baso # (Auto) (0-0.2) K/uL Immature Gran # (Auto) (0.01-0.20) K/uL Echinocytes Sodium (136-145) mmol/L Potassium (3.5-5.1) mmol/L Chloride (98-107) mmol/L Carbon Dioxide (21-32) mmol/L Anion Gap (3-11) BUN (6-23) mg/dl Creatinine (0.6-1.4) mg/dl Est Cr Clr Drug Dosing ml/min Est GFR ( Amer) ml/min Est GFR (Non-Af Amer) ml/min BUN/Creatinine Ratio (10-20) Glucose (70-99(Fasting)) mg/dl Lactate (0.4-2.0) mmol/L Calcium (8.6-10.3) mg/dl Magnesium (1.7-2.4) mg/dl Total Bilirubin (0.2-1.0) mg/dl AST (13-39) U/L ALT (7-52) U/L Alkaline Phosphatase (34-104) U/L Total Protein (6.0-8.3) gm/dl Albumin (3.4-5.0) gm/dl Globulin (2.5-4.0) gm/dl Albumin/Globulin Ratio (0.9-2) Lipase (11-82) U/L Procalcitonin 1.28 H (0-0.5) ng/ml Stl C. cayetanensis PCR Not Detected (NotDetected) Stool Rotavirus A PCR Not Detected (NotDetected) Stl Adenov F 40/41 PCR Not Detected (NotDetected) Stool Astrovirus (PCR) Not Detected (NotDetected) Stool Campylobacter PCR Not Detected (NotDetected) Stl C. diff Tox B Gene (Neg) Stool Cryptosporidium PCR Not Detected (NotDetected) Stl E.coli Shiga Tox PCR Not Detected (NotDetected) Stl Enterotoxigenic E PCR Not Detected (NotDetected) Stool EPEC (PCR) Not Detected (NotDetected) Stool EAEC (PCR) Not Detected (NotDetected) Stl E. histolytica PCR Not Detected (NotDetected) Stool Giardia Lamblia PCR Not Detected (NotDetected) Stool Salmonella PCR Not Detected (NotDetected) Stool Sapovirus (PCR) Not Detected (NotDetected) Stl P. shigelloides PCR Not Detected (NotDetected) Stl Shigella/EIEC PCR Not Detected (NotDetected) St Y.enterocolitica PCR Not Detected (NotDetected) Stool Vibrio (PCR) Not Detected (NotDetected) Stl Vibrio cholerae PCR Not Detected (NotDetected) Stl Norovirus GI/GII PCR Not Detected (NotDetected) Adenovirus (PCR) Not Detected (NotDetected) B. pertussis DNA (PCR) Not Detected (NotDetected) B.parapertussis DNA PCR Not Detected (NotDetected) C. pneumoniae DNA (PCR) Not Detected (NotDetected) Coronavirus OC43 (PCR) Not Detected (NotDetected) Coronavirus HKU1 (PCR) Not Detected (NotDetected) Coronavirus 229E (PCR) Not Detected (NotDetected) SARS-CoV-2 (PCR) Not Detected (NotDetected) Coronavirus NL63 (PCR) Not Detected (NotDetected) Human Metapneumovir PCR Not Detected (NotDetected) Influenza Type A (PCR) Not Detected (NotDetected) Influenza Type B (PCR) Not Detected (NotDetected) M. pneumoniae (PCR) Not Detected (NotDetected) Parainfluenza 1 (PCR) Not Detected (NotDetected) Parainfluenza 2 (PCR) Not Detected (NotDetected) Parainfluenza 3 (PCR) Not Detected (NotDetected) Parainfluenza 4 (PCR) Not Detected (NotDetected) RSV (PCR) Not Detected (NotDetected) Entero/Rhino (PCR) Not Detected (NotDetected) 02/28/23 Range/Units 14:07 WBC (4.8-10.8) K/ul RBC (4.70-6.10) M/uL Hgb (14.0-18.0) g/dl Hct (42.0-52.0) % MCV (80.0-100.0) fL MCH (25.0-34.0) pg MCHC (32.0-36.0) g/dL RDW Std Deviation (36.4-46.3) fL RDW Coeff of Susan (11.5-14.5) % Plt Count (130-400) K/uL MPV (9.4-12.4) fL Immature Gran % (Auto) % Neut % (Auto) % Lymph % (Auto) % [place] % (Auto) % Eos % (Auto) % Baso % (Auto) % Neut # (Auto) (1.40-6.50) K/uL Lymph # (Auto) (1.2-3.4) K/uL [place] # (Auto) (0.11-0.59) K/uL Eos # (Auto) (0-0.50) K/uL Baso # (Auto) (0-0.2) K/uL Immature Gran # (Auto) (0.01-0.20) K/uL Echinocytes Sodium (136-145) mmol/L Potassium (3.5-5.1) mmol/L Chloride (98-107) mmol/L Carbon Dioxide (21-32) mmol/L Anion Gap (3-11) BUN (6-23) mg/dl Creatinine (0.6-1.4) mg/dl Est Cr Clr Drug Dosing ml/min Est GFR ( Amer) ml/min Est GFR (Non-Af Amer) ml/min BUN/Creatinine Ratio (10-20) Glucose (70-99(Fasting)) mg/dl Lactate 1.1 (0.4-2.0) mmol/L Calcium (8.6-10.3) mg/dl Magnesium (1.7-2.4) mg/dl Total Bilirubin (0.2-1.0) mg/dl AST (13-39) U/L ALT (7-52) U/L Alkaline Phosphatase (34-104) U/L Total Protein (6.0-8.3) gm/dl Albumin (3.4-5.0) gm/dl Globulin (2.5-4.0) gm/dl Albumin/Globulin Ratio (0.9-2) Lipase (11-82) U/L Procalcitonin (0-0.5) ng/ml Stl C. cayetanensis PCR (NotDetected) Stool Rotavirus A PCR (NotDetected) Stl Adenov F 40/41 PCR (NotDetected) Stool Astrovirus (PCR) (NotDetected) Stool Campylobacter PCR (NotDetected) Stl C. diff Tox B Gene (Neg) Stool Cryptosporidium PCR (NotDetected) Stl E.coli Shiga Tox PCR (NotDetected) Stl Enterotoxigenic E PCR (NotDetected) Stool EPEC (PCR) (NotDetected) Stool EAEC (PCR) (NotDetected) Stl E. histolytica PCR (NotDetected) Stool Giardia Lamblia PCR (NotDetected) Stool Salmonella PCR (NotDetected) Stool Sapovirus (PCR) (NotDetected) Stl P. shigelloides PCR (NotDetected) Stl Shigella/EIEC PCR (NotDetected) St Y.enterocolitica PCR (NotDetected) Stool Vibrio (PCR) (NotDetected) Stl Vibrio cholerae PCR (NotDetected) Stl Norovirus GI/GII PCR (NotDetected) Adenovirus (PCR) (NotDetected) B. pertussis DNA (PCR) (NotDetected) B.parapertussis DNA PCR (NotDetected) C. pneumoniae DNA (PCR) (NotDetected) Coronavirus OC43 (PCR) (NotDetected) Coronavirus HKU1 (PCR) (NotDetected) Coronavirus 229E (PCR) (NotDetected) SARS-CoV-2 (PCR) (NotDetected) Coronavirus NL63 (PCR) (NotDetected) Human Metapneumovir PCR (NotDetected) Influenza Type A (PCR) (NotDetected) Influenza Type B (PCR) (NotDetected) M. pneumoniae (PCR) (NotDetected) Parainfluenza 1 (PCR) (NotDetected) Parainfluenza 2 (PCR) (NotDetected) Parainfluenza 3 (PCR) (NotDetected) Parainfluenza 4 (PCR) (NotDetected) RSV (PCR) (NotDetected) Entero/Rhino (PCR) (NotDetected) Administered Medications Discontinued Medications Sodium Chloride (Nss 1000ml) 1,000 mls @ 999 mls/hr IV .Q1H1M ONE Stop: 02/28/23 12:53 Last Infusion: 02/28/23 13:03 Dose: 0 mls/hr Documented By: Admin: 02/28/23 12:14 Dose: 999 mls/hr Documented By: SUREKHA Famotidine (Pepcid 20mg Iv Push) 20 mg in 5 mls @ 2.5 mls/min IV NOW STA Stop: 02/28/23 11:54 Last Admin: 02/28/23 12:14 Dose: 2.5 mls/min Documented By: SUREKHA Magnesium Sulfate/Dextrose (Magnesium Sulfate / D5w) 1 gm in 100 mls @ 100 mls/hr IV NOW STA Stop: 02/28/23 14:14 Last Admin: 02/28/23 14:22 Dose: 100 mls/hr Documented By: DELFINA Sodium Chloride (Nss 1000ml) 1,000 mls @ 999 mls/hr IV .Q1H1M ONE Stop: 02/28/23 14:47 Last Admin: 02/28/23 14:02 Dose: 999 mls/hr Documented By: SUREKHA Piperacillin Sod/Tazobactam Sod (Zosyn) 4.5 gm in 120 mls @ 240 mls/hr IV NOW ONE Stop: 02/28/23 14:16 Last Admin: 02/28/23 14:22 Dose: 240 mls/hr Documented By: DELFINA Ondansetron HCl (Ondansetron Inj 2 Mg/Ml 2 Ml Vial) 4 mg IV NOW STA Stop: 02/28/23 11:54 Last Admin: 02/28/23 12:14 Dose: 4 mg Documented By: ES Imaging Data Radiologist's Impression: Abdomen/Pelvis CT 02/28/23 13:[address] WITHOUT CONTRAST CT DOSE: 267.89 mGy.cm HISTORY: Nausea. Vomiting. Diarrhea. Generalized abdominal pain. TECHNIQUE: Multiaxial CT images of the abdomen and pelvis were performed without contrast. A dose lowering technique was utilized adhering to the principles of ALARA. COMPARISON STUDY: None. FINDINGS: Mild interstitial thickening at the lung bases which is likely chronic. No pneumoperitoneum. No pneumatosis. No acute fractures identified. There are poststernotomy changes. The heart is mildly enlarged. An aortic valve prosthesis is noted. The unenhanced liver, gallbladder, spleen, adrenal glands, and pancreas are unremarkable. Moderate calcified plaque within the normal caliber abdominal aorta. No renal or ureteral stones. No hydronephrosis. Bilateral renal hypodense lesions are incompletely characterized on this study but statistically represent cysts. Dominant lesion within the left kidney measures approximately 3 cm. No retroperitoneal or mesenteric lymphadenopathy. No pelvic lymphadenopathy or pelvic free fluid. Mild bladder wall thickening is likely due to underdistention or from the mildly enlarged prostate gland. Suboptimal evaluation for bowel pathology due to the lack of intravenous and oral contrast. However, there is no definite bowel wall thickening or obstruction. Normal appendix. Colonic diverticulosis. No evidence for acute diverticulitis. Nondilated fluid-filled loops of large and small bowel seen throughout the abdomen. This favors a gastroenteritis/diarrheal illness. IMPRESSION: 1. Nondilated fluid-filled loops of large and small bowel seen throughout the abdomen. This favors a gastroenteritis/diarrheal illness. 2. No evidence for a bowel obstruction. 3. Normal appendix. 4. Colonic diverticulosis. No evidence for acute diverticulitis. 5. Additional findings as described above. ACT 112: Negative or not required by law. Electronically signed by: Brennen Dorman M.D. 02/28/2023 1:39 PM Discharge Plan Visit Data Chief Complaint: Illness Stated Complaint: ILLNESS ED Provider: Philippe Diaz Discharge Problem: Intractable nausea and vomiting, Gastroenteritis, SIRS (systemic inflammatory response syndrome), Acute on chronic renal insufficiency, Hypomagnesemia Forms Stand Alone Forms: [employer] Therapeutic Prescriptions Prescriptions: No Action atorvastatin 40 mg tablet 40 mg PO QPM Qty: 90 3RF allopurinol 100 mg tablet 100 mg PO DAILY Qty: 90 3RF pantoprazole 40 mg tablet,delayed release (DR/EC) 40 mg PO DAILY Qty: 90 3RF amlodipine 10 mg tablet 10 mg PO QAM Qty: 90 3RF hydrochlorothiazide 12.5 mg tablet 12.5 mg PO DAILY Qty: 90 3RF metoprolol succinate 50 mg tablet extended release 24 hr 75 mg PO QAM Qty: 135 3RF garlic 1,000 mg capsule 1,000 mg PO DAILY coenzyme Q10 100 mg capsule 100 mg PO QAM aspirin [Aspir-81] 81 mg Tablet,Delayed Release (Dr/Ec) 81 mg PO QPM Referrals Referrals: Enrique Kelly MD [Primary Care Provider] -
--- NOTE | 2023-02-28 15:36 | History & Physical Report ---
Date of Service February 28, 2023 Assessment & Plan (1) Gastroenteritis and colitis, viral: Plan: - Biofire and stool PCR all negative - Had one dose Zosyn in ER - IVFs - Antiemetics as needed - BRAT diet - Repeat labs in AM (2) GERD (gastroesophageal reflux disease): Plan: - Will hold pantoprazole and add pepcid (3) Hyperlipidemia: Plan: chronic and stable continue Lipitor (4) History of aortic valve replacement: Plan: Follows with Dr Wooten (5) CAD (coronary artery disease): Plan: S/P CABG follows a scheduled exercise routine follows with Dr Wooten Last echo 02/19/23 - EF 50-55% - No RWMA - No change from 08/2018 (6) HTN (hypertension): Plan: chronic and stable Continue Metoprolol Continue Amlodipine Hold HCTZ with vomiting and diarrhea (7) Gout: Plan: chronic and stable continue Allopurinol History of Present Illness Chief Complaint: nausea, vomiting and diarrhea Primary Care Provider: Enrique Kelly MD Jeffrey Mauirce is a 83 year old male with apast medical history of Hypertension, Hyperlipidemia, CAD s/p CABG and aortic valve replacement, GERD, and gout who presented to the ER today with complaints of N/V/D x 1 day. Patient states he had 48 hours of N/V/D on 02/16 tp 02/17 that resolved with some immodium and rest. Then last night about midnight he had some nausea and vomiting. He vomited up food contents and no hematemesis or CGE. He then proceeded to have multiple bouts of yello/green musousy diarrhea all night and today. He denies any fevers, chills, hematochezia, melena or BRB OK. He has had several colonoscopies in the past and had colon polyps. He denies any ill contacts, foreign travel or new medications. He was started on Pantoprazole in December and had to decrease taking to one every other day due to constipation. Patient was evaluated in the ER and found to have an elevated procal 1.28, elevated WBC 20.4 with no left shift, normal hgb and hct. Stools and biofire were negative. CTAP revealed nondilated fluid filled loops of large and small bowel seen throughout the abdomen. Allergies Allergy/AdvReac Type Severity Reaction Status Date / Time latex Allergy Intermediate Rash Verified 02/19/23 10:06 clarithromycin [From Biaxin] Allergy Mild GI symptoms Verified 02/19/23 10:06 codeine AdvReac Intermediate Swink Verified 02/19/23 10:06 "nervous" lactose AdvReac Intermediate diarrhea, Verified 02/19/23 10:06 abd cramping simvastatin [From Zocor] AdvReac Intermediate Myalgias Verified 02/19/23 10:06 Home Medications Medication Instructions Recorded Confirmed Type garlic 1,000 mg capsule 1,000 mg PO DAILY 07/18/19 02/28/23 History coenzyme Q10 100 mg capsule 100 mg PO QAM 07/19/19 02/28/23 History aspirin 81 mg tablet,delayed 81 mg PO QPM 08/09/19 02/28/23 History release (Aspir-) allopurinol 100 mg tablet 100 mg PO DAILY #90 tabs 06/18/22 02/28/23 Rx pantoprazole 40 mg tablet,delayed 40 mg PO DAILY #90 tabs 06/18/22 02/28/23 Rx release atorvastatin 40 mg tablet 40 mg PO QPM #90 tabs 11/03/22 02/28/23 Rx amlodipine 10 mg tablet 10 mg PO QAM #90 tabs 12/22/22 02/28/23 Rx hydrochlorothiazide 12.5 mg tablet 12.5 mg PO DAILY #90 tabs 12/22/22 02/28/23 Rx metoprolol succinate 50 mg 75 mg PO QAM #135 tabs 12/22/22 02/28/23 Rx tablet,extended release 24 hr Past Med/Surg History Medical History CAD (coronary artery disease) stent x 1 (20+ years ago), CABG x 3 (2016) Chronic renal insufficiency CKD (chronic kidney disease), stage III Head injury Heart disease High blood pressure History of aortic valve replacement hx aortic stenosis History of atrial fibrillation s/p CABG; no known recurrence History of gout Left inguinal hernia Multiple fractures of ribs of right side Myocardial infarction Renal insufficiency Seborrheic keratosis Surgical History H/O heart bypass surgery CABG x 3 + AVR (2016) History of cardiac cath 20+ years ago: stent x 1; 2017: subsequent CABG + AVR History of cataract surgery R/L History of colonoscopy with polypectomy History of hemorrhoidectomy History of hernia surgery History of surgery on extremity X2; RIGHT LEG/+ HARDWARE Hx of inguinal hernia surgery (08/30/19) Left Laparoscopic Inguinal Hernia Repair Dr. Warner 08/30/19 Family History Father Myocardial infarction ?? Prostate cancer Stroke, Onset Age: 86 Son Prostate cancer Mother Dementia Brother Stroke Brother Hypertension Other Family history of cancer Denies family history of Ovarian cancer Breast cancer Colorectal cancer Social History Smoking Status: Former smoker Tobacco Type: Cigarettes Age Started Using Tobacco: 17; Age Quit Using Tobacco: 44; packs per day: 0.5; Second Hand Exposure: No; Do You Dip or Chew Tobacco: No; Hx Alcohol Use: Yes Alcohol type: beer Alcohol Intake Frequency: 2-3 x/Week Hx Substance Use: No Preferred Language: Norwegian Communication Ability: Effective Visual Impairment: Limited Hearing Ability: Normal Shipping Weigher Required: No Beliefs That Will Affect Care: None marital status: Current Living Situation: Spouse Current Living Situation Comment: Lives at home with current occupational status: retired How many Children do You have: 4 Feels Safe at Home: Yes Safety Concerns: Feels Safe At This Time Childhood Exposure to Second-Hand Smoke: Yes caffeine: Yes Dental Care, Regularly: Yes Physical Activity Frequency: Daily Physical Activity Frequency Comment: treadmill 20 mins daily Seatbelt Use: always Sunscreen Use: No Assistive Devices: None Review of Systems Constitutional: + fatigue; no fever, no chills and no sweats Respiratory: no cough, no chest congestion, no dyspnea and no hemoptysis Cardiovascular: no chest pain, no chest pain with activity, no dyspnea, no lightheadedness, no syncope and no calf pain Gastrointestinal: + heartburn, + nausea, + vomiting and + diarrhea/loose stools; no abdominal pain, no coffee ground emesis, no hematemesis, no dysphagia and no blood in stools Genitourinary: no dysuria, no urinary frequency or no urinary hesitancy Integumentary: no rash, no lesions and no new lesions Psychiatric: no change in appetite and no anxiety Physical Exam Constitutional: WD/WN, vitals as above Neck: trachea midline, no thyromegaly Respiratory: normal respiratory effort, lungs clear to auscultation Cardiovascular: Rate/Rhythm: regular rate and regular rhythm Heart Sounds: normal S1, normal S2 and + murmur Extremities: normal capillary refill; no calf tenderness and no edema Gastrointestinal (Abdomen): normal bowel sounds, soft, nontender, no hepatosplenomegaly mildly hyperactive bowel sounds Neurologic: PERRL, EOMI, accommodation nl, no face palsy, no dysarthria Psychiatric: A+Ox3, euthymic affect Results & Data Results & Data Vital Signs (Past 12 Hours) Vital Signs Temp Pulse Pulse Resp BP BP Pulse Ox 02/28/23 14:01 64 16 128/62 97 02/28/23 12:24 65 02/28/23 12:15 99 02/28/23 12:15 77 20 135/58 L 99 02/28/23 11:32 36.4 C L 81 20 85/60 L 97 O2 Del Method 02/28/23 14:01 Room Air 02/28/23 12:24 02/28/23 12:15 Room Air 02/28/23 12:15 Room Air 02/28/23 11:32 Room Air Laboratory Results Abnormal lab results 02/28/23 02/28/23 02/28/23 Range/Units 12:15 12:15 12:15 WBC 20.46 H (4.8-10.8) K/ul RBC 4.09 L (4.70-6.10) M/uL Hgb 12.9 L (14.0-18.0) g/dl Hct 37.2 L (42.0-52.0) % Neut # (Auto) 19.46 H (1.40-6.50) K/uL Lymph # (Auto) 0.31 L (1.2-3.4) K/uL Sodium 131 L (136-145) mmol/L Carbon Dioxide 20 L (21-32) mmol/L Creatinine 2.36 H (0.6-1.4) mg/dl BUN/Creatinine Ratio 9.3 L (10-20) Glucose 127 H (70-99(Fasting)) mg/dl Magnesium 1.6 L (1.7-2.4) mg/dl Total Bilirubin 1.1 H (0.2-1.0) mg/dl Lipase 96 H (11-82) U/L Procalcitonin 1.28 H (0-0.5) ng/ml Diagnostic Findings Abdomen/Pelvis CT 02/28/23 13:[address] WITHOUT CONTRAST CT DOSE: 267.89 mGy.cm HISTORY: Nausea. Vomiting. Diarrhea. Generalized abdominal pain. TECHNIQUE: Multiaxial CT images of the abdomen and pelvis were performed without contrast. A dose lowering technique was utilized adhering to the principles of ALARA. COMPARISON STUDY: None. FINDINGS: Mild interstitial thickening at the lung bases which is likely chronic. No pneumoperitoneum. No pneumatosis. No acute fractures identified. There are poststernotomy changes. The heart is mildly enlarged. An aortic valve prosthesis is noted. The unenhanced liver, gallbladder, spleen, adrenal glands, and pancreas are unremarkable. Moderate calcified plaque within the normal caliber abdominal aorta. No renal or ureteral stones. No hydronephrosis. Bilateral renal hypodense lesions are incompletely characterized on this study but statistically represent cysts. Dominant lesion within the left kidney measures approximately 3 cm. No retroperitoneal or mesenteric lymphadenopathy. No pelvic lymphadenopathy or pelvic free fluid. Mild bladder wall thickening is likely due to underdistention or from the mildly enlarged prostate gland. Suboptimal evaluation for bowel pathology due to the lack of intravenous and oral contrast. However, there is no definite bowel wall thickening or obstruction. Normal appendix. Colonic diverticulosis. No evidence for acute diverticulitis. Nondilated fluid-filled loops of large and small bowel seen throughout the abdomen. This favors a gastroenteritis/diarrheal illness. IMPRESSION: 1. Nondilated fluid-filled loops of large and small bowel seen throughout the abdomen. This favors a gastroenteritis/diarrheal illness. 2. No evidence for a bowel obstruction. 3. Normal appendix. 4. Colonic diverticulosis. No evidence for acute diverticulitis. 5. Additional findings as described above. ACT 112: Negative or not required by law. Electronically signed by: Brennen Dorman M.D. 02/28/2023 1:39 PM Supervising Physician Co-Signing Physician Notes Patient seen and examined, chart reviewed, case discussed with Fern Rosenberg PA-C and I agree with the assessment and plan as above except as otherwise noted Labs and images reviewed 83-year-old male with past medical history of hypertension, hyperlipidemia, sho nary artery disease with history of CABG/AVR, GERD who presented with nausea/vomiting/diarrhea of 1 day. Initial symptoms did improve with Imodium and then recurred, has had multiple bouts of intractable vomiting since then. CT shows dilated loops of bowel consistent with enteritis. Bio fire is negative. Due to continued symptoms and JULISSA patient has been recommended for IV fluids and observation. Mucous membranes are tacky, heart rate is regular, breathing is unlabored on room air. No antibiotics indicated at this time, agree with trending BMP daily and fluids and electrolyte replacement as needed. Continue symptomatic care of nausea vomiting. Agree with assessment/management as PG Care Time/CCT Total # of Minutes Spent Total Time Spent with Patient: Total time spent is greater than 50% in coordination of care (as documented) at patient's floor/unit and/or counseling patient: Coding Level of Care Code 85173 INT INP/OBS CARE 1/40MIN Diagnoses Gastroenteritis and colitis, viral A08.4 GERD (gastroesophageal reflux disease) K21.9 Hyperlipidemia E78.5 History of aortic valve replacement Z95.2 CAD (coronary artery disease) I25.10 HTN (hypertension) I10 Gout M10.9
[2023-02-28] MEDS ORDERED: ONDANSETRON INJ 2 MG/ML 2 ML VIAL IV PRN (17:41)
[2023-02-28 19:32] LABS: Appearance Urine Clear (Clear); Bacteria Urine Automated Negative (Negative); Bilirubin Urine Negative (Negative); Blood Urine Negative (Negative); Color Urine Yellow; Epithelial Cell Urine Auto 20-30 /lpf (0-5); Glucose Urine UA Negative (Negative); Ketones Urine Trace (Negative); Leukocyte Esterase Urine Negative (Negative); Nitrite Urine Negative (Negative); Protein Urine 1+ (Negative); Specific Gravity Urine 1.021 (1.000-1.030); Urobilinogen Urine Negative (Negative)
[2023-02-28] MEDS: ASPIRIN 81 MG ECTAB PO SCH (20:31)
[2023-02-28] MEDS: MELATONIN 3 MG TAB PO PRN (22:51)
[2023-03-01 07:39] LABS: Hematocrit (blood only) 31.6 % (42.0-52.0); Hemoglobin 11.1 g/dl (14.0-18.0); Mean Corpuscular Hemoglobin 31.6 pg (25.0-34.0); Mean Corpuscular Hgb Conc 35.1 g/dL (32.0-36.0); Mean Platelet Volume 10.2 fL (9.4-12.4); Platelet Count 261 K/uL (130-400); RDW Coefficient of Variation 13.2 % (11.5-14.5); RDW Standard Deviation 43.5 fL (36.4-46.3); Red Blood Count 3.51 M/uL (4.70-6.10); White Blood Count 14.55 K/ul (4.8-10.8)
[2023-03-01 08:09] LABS: BUN Creatinine Ratio 11.6 (10-20); Calcium 8.6 mg/dl (8.6-10.3); Creatinine Clr Calc Pharmacy 28.1 ml/min; Est GFR (African American) 43.9 ml/min; Est GFR (Non-African American) 37.8 ml/min; Potassium 3.2 mmol/L (3.5-5.1)
[2023-03-01] MEDS ORDERED: POTASSIUM CHLORIDE CRTAB 20 MEQ TABCR PO STA (08:40)
[2023-03-01] MEDS: allopurinoL 100 MG TAB PO SCH (09:01)
[2023-03-01] MEDS: FAMOTIDINE 40 MG TABLET PO SCH (09:03)
[2023-03-01] MEDS: amLODIPine BESYLATE 5 MG TAB PO SCH ×2 (09:03→14:35)
[2023-03-01] MEDS: METOPROLOL SUCC 25MG EXT REL TAB PO SCH ×2 (09:04→14:36)
[2023-03-01] MEDS ORDERED: SODIUM CHLORIDE 0.9% 1000ML 1,000 ML IV SCH (13:00)
--- NOTE | 2023-03-01 13:06 | Hospitalist Progress Note ---
Date of Service March 01, 2023 Assessment & Plan (1) Gastroenteritis and colitis, viral: Plan: Acute/unstable associated with electrolyte derangements and leukocytosis - Biofire/stool PCR all negative - Had one dose Zosyn in ER, no further doses given - Received 2L of NSS in ED, add mIVF with NSS @ 100 ml/hr x 1 L - Antiemetics as needed - Ordered a full liq diet, advance to low residue - CBC and Chemistry reviewed, potassium low at 3.2 due to GI losses, replacement ordered, Na now normalized - Rectal tube in place - maintain until passing stool less frequently - a nticipate with advancement of diet this should improve - Make full admission - C diff toxin is pending (2) Acute on chronic renal insufficiency: Plan: Acute on chronic/stable - Baseline creatinine ranges 1.3 to 1.7 - Creatinine on admission 2.36 which has improved with hydration & hold HCTZ - Chemistry reviewed this AM, creatinine 1.64 back within baseline (3) Leukocytosis: Plan: Acute/unstable - WBC count has improved from 20.46 down to 14.55 - Did receive one dose of IV Zosyn, no further abx as likely this leukemoid reaction - Continue to trend with repeat CBC in AM - Blood cultures ordered/pending (4) GERD (gastroesophageal reflux disease): Plan: Chronic/stable - Pantoprazole held and added pepcid (5) CAD (coronary artery disease): Plan: S/P CABG/HTN/HLD/h/o AVR Chronic/stable - Follows with Dr Wooten - Last echo 02/19/23: EF 50-55% w/o new WMA, no change from last echo in 2018 - Continue Amlodipine and Metoprolol, Atorvastatin - HCTZ on hold d/t dehydration in setting of v/d Plan Repeat labs in AM ordered. Make full admission. Anticipate will likely be ready for dc in the next 24-48 hours. Above plan to be d/w Dr. Barney. Admission and Anticipated Discharge Date Admission Date: February 28, 2023 Subjective Patient seen on daily rounds this morning. Reports that he is tolerating rectal tube, is not sure if the stool has slowed down at all. Reports no further nausea or vomiting. Denies fever, chills or abd pain. No gu issues. Physical Exam Physical Exam: GENERAL: 83 yo well-developed, well-nourished M. AAOx4. NAD. LUNGS: Clear to auscultation bilaterally. No W/R/R. CARDIOVASCULAR: Regular rate and rhythm. ABDOMEN: Soft, non-tender and non-distended. No palpable masses. BS normoactive x 4 quad. EXTREMITIES: No edema. Non-tender. Peripheral pulses +2/4. Results & Data Results & Data Vital Signs (Past 12 Hours) Vital Signs Temp Pulse Resp BP Pulse Ox O2 Del Method 03/01/23 07:46 97 Room Air 03/01/23 07:39 36.6 C 74 20 129/69 Room Air Laboratory Results 03/01/23 06:50 03/01/23 06:50 PG Care Time/CCT Total # of Minutes Spent Total Time Spent with Patient: Total time spent is greater than 50% in coordination of care (as documented) at patient's floor/unit and/or counseling patient: Coding Level of Care Code 96857 SUB INP/OBS CARE 2/35MIN Diagnoses Gastroenteritis and colitis, viral A08.4 Acute on chronic renal insufficiency N28.9; N18.9 Leukocytosis D72.829 GERD (gastroesophageal reflux disease) K21.9 CAD (coronary artery disease) I25.10
[2023-03-01] MEDS: ASPIRIN 81 MG ECTAB PO SCH (20:05)
[2023-03-01] MEDS: MELATONIN 3 MG TAB PO PRN (21:47)
[2023-03-02 07:20] LABS: BUN Creatinine Ratio 12.7 (10-20); Creatinine Clr Calc Pharmacy 27.7 ml/min; Est GFR (African American) 43.2 ml/min; Est GFR (Non-African American) 37.3 ml/min; Magnesium 1.6 mg/dl (1.7-2.4); Potassium 3.9 mmol/L (3.5-5.1)
[2023-03-02] MEDS: amLODIPine BESYLATE 5 MG TAB PO SCH (08:24)
[2023-03-02] MEDS: METOPROLOL SUCC 25MG EXT REL TAB PO SCH (08:24)
[2023-03-02] MEDS: FAMOTIDINE 40 MG TABLET PO SCH (08:24)
[2023-03-02] MEDS: allopurinoL 100 MG TAB PO SCH (08:24)
[2023-03-02] MEDS: MAGNESIUM SULFATE / D5W 1 GM/100 ML BAG IV SCH ×2 (09:21→10:40)
[2023-03-02 10:32] LABS: Basophils # (auto) 0.04 K/uL (0-0.2); Basophils % (auto) 0.4 %; Eosinophils # (auto) 0.34 K/uL (0-0.50); Eosinophils % (auto) 3.5 %; Hematocrit (blood only) 28.4 % (42.0-52.0); Hemoglobin 9.6 g/dl (14.0-18.0); Immature Granulocytes # (auto) 0.02 K/uL (0.01-0.20); Immature Granulocytes % (auto) 0.2 %; Lymphocytes # (auto) 1.61 K/uL (1.2-3.4); Lymphocytes % (auto) 16.5 %; Mean Corpuscular Hemoglobin 31.3 pg (25.0-34.0); Mean Corpuscular Hgb Conc 33.8 g/dL (32.0-36.0); Mean Corpuscular Volume 92.5 fL (80.0-100.0); Mean Platelet Volume 10.3 fL (9.4-12.4); Monocytes # (auto) 0.85 K/uL (0.11-0.59); Monocytes % (auto) 8.7 %; Neutrophils # (auto) 6.88 K/uL (1.40-6.50); Neutrophils % (auto) 70.7 %; Platelet Count 239 K/uL (130-400); RDW Coefficient of Variation 13.2 % (11.5-14.5); RDW Standard Deviation 44.6 fL (36.4-46.3); Red Blood Count 3.07 M/uL (4.70-6.10); White Blood Count 9.74 K/ul (4.8-10.8)
--- NOTE | 2023-03-02 10:35 | Electrocardiogram Report ---
Test Reason : Blood Pressure : / mmHG Vent. Rate : 071 BPM Atrial Rate : 071 BPM P-R Int : 230 ms QRS Dur : 162 ms QT Int : 456 ms P-R-T Axes : 000 003 093 degrees QTc Int : 495 ms Sinus rhythm with 1st degree A-V block Left bundle branch block Abnormal ECG When compared with ECG of 16-AUG-2019 11:54, Left bundle branch block is now Present Confirmed by Ananda Stevens ([id number]) on 03/02/2023 10:34:53 AM Referred By: REFERRED SELF Confirmed By:Annada Stevens
--- NOTE | 2023-03-02 13:14 | Discharge Summary ---
Date of Service March 02, 2023 Admission HPI Per Admitting Provider Jeffrey Maurice is a 83 year old male with apast medical history of Hypertension, Hyperlipidemia, CAD s/p CABG and aortic valve replacement, GERD, and gout who presented to the ER today with complaints of N/V/D x 1 day. Patient states he had 48 hours of N/V/D on 02/16 tp 02/17 that resolved with some immodium and rest. Then last night about midnight he had some nausea and vomiting. He vomited up food contents and no hematemesis or CGE. He then proceeded to have multiple bouts of yello/green musousy diarrhea all night and today. He denies any fevers, chills, hematochezia, melena or BRB NC. He has had several colon oscopies in the past and had colon polyps. He denies any ill contacts, foreign travel or new medications. He was started on Pantoprazole in December and had to decrease taking to one every other day due to constipation. Patient was evaluated in the ER and found to have an elevated procal 1.28, elevated WBC 20.4 with no left shift, normal hgb and hct. Stools and biofire were negative. CTAP revealed nondilated fluid filled loops of large and small bowel seen throughout the abdomen. Principal Diagnosis N/V/D due to gastroenteritis, likely viral Hypokalemia/hypomagnesemia/hyponatremia - all corrected/replaced JULISSA on CKD - resolved Discharge Exam GENERAL: 83 yo well-developed, well-nourished M. AAOx4. NAD. LUNGS: Clear to auscultation bilaterally. No W/R/R. CARDIOVASCULAR: Regular rate and rhythm. ABDOMEN: Soft, non-tender and non-distended. No palpable masses. BS normoactive x 4 quad. rectal tube noted with sediment in bottom of bag as opposed to all watery dark stool. EXTREMITIES: No edema. Non-tender. Peripheral pulses +2/4. Discharge Data Allergies Allergy/AdvReac Type Severity Reaction Status Date / Time latex Allergy Intermediate Rash Verified 02/19/23 10:06 clarithromycin [From Biaxin] Allergy Mild GI symptoms Verified 02/19/23 10:06 codeine AdvReac Intermediate [place] Verified 02/19/23 10:06 "nervous" lactose AdvReac Intermediate diarrhea, Verified 02/19/23 10:06 abd cramping simvastatin [From Zocor] AdvReac Intermediate Myalgias Verified 02/19/23 10:06 Consultations 02/28/23 14:25 ED Decision to Admit Stat Ordered Studies Abdomen/Pelvis CT 02/28/23 13:[address] WITHOUT CONTRAST CT DOSE: 267.89 mGy.cm HISTORY: Nausea. Vomiting. Diarrhea. Generalized abdominal pain. TECHNIQUE: Multiaxial CT images of the abdomen and pelvis were performed without contrast. A dose lowering technique was utilized adhering to the principles of ALARA. COMPARISON STUDY: None. FINDINGS: Mild interstitial thickening at the lung bases which is likely chronic. No pneumoperitoneum. No pneumatosis. No acute fractures identified. There are poststernotomy changes. The heart is mildly enlarged. An aortic valve prosthesis is noted. The unenhanced liver, gallbladder, spleen, adrenal glands, and pancreas are unremarkable. Moderate calcified plaque within the normal caliber abdominal aorta. No renal or ureteral stones. No hydronephrosis. Bilateral renal hypodense lesions are incompletely characterized on this study but statistically represent cysts. Dominant lesion within the left kidney measures approximately 3 cm. No retroperitoneal or mesenteric lymphadenopathy. No pelvic lymphadenopathy or pelvic free fluid. Mild bladder wall thickening is likely due to underdistention or from the mildly enlarged prostate gland. Suboptimal evaluation for bowel pathology due to the lack of intravenous and oral contrast. However, there is no definite bowel wall thickening or obstruction. Normal appendix. Colonic diverticulosis. No evidence for acute diverticulitis. Nondilated fluid-filled loops of large and small bowel seen throughout the abdomen. This favors a gastroenteritis/diarrheal illness. IMPRESSION: 1. Nondilated fluid-filled loops of large and small bowel seen throughout the a bdomen. This favors a gastroenteritis/diarrheal illness. 2. No evidence for a bowel obstruction. 3. Normal appendix. 4. Colonic diverticulosis. No evidence for acute diverticulitis. 5. Additional findings as described above. ACT 112: Negative or not required by law. Electronically signed by: Brennen Dorman M.D. 02/28/2023 1:39 PM Hospital Course (1) Gastroenteritis and colitis, viral: Acute/stable associated with electrolyte derangements and leukocytosis - Biofire/stool PCR all negative - Had one dose Zosyn in ER, no further doses given - Received a total of 3L of IVF (NSS) during hospitalization - Ordered a full liq diet, advanced to low residue on 03/02 which he tolerated well - Had hyponatremia/hypomagnesemia/hypokalemia all due to GI losses and dehydration - this was corrected with fluids and IV/oral supplementation - Rectal tube in place with improvement in stool consistency observed today, will plan to remove rectal tube - C diff gene was negative, therefore toxin was not drawn - Noted again to have hypomagnesemia this AM of 1.6, replaced with 2g of IV Mag Sulfate, dc on slow mag supplementation (2) Acute on chronic renal insufficiency: Acute on chronic/stable - Baseline creatinine ranges 1.3 to 1.7 - Creatinine on admission 2.36 which has improved with hydration & holding HCTZ - Chemistry reviewed this AM, creatinine 1.66, back within baseline (3) Leukocytosis: Acute/stable/resolved - WBC count has improved from 20.46 down to 14.55 - Did receive one dose of IV Zosyn, no further abx as likely this leukemoid reaction - Trended with repeat CBC today, wbc normalized to 9.74 - Blood cultures NGTD (4) GERD (gastroesophageal reflux disease): Chronic/stable - Pantoprazole can be resumed upon dc (5) CAD (coronary artery disease): S/P CABG/HTN/HLD/h/o AVR Chronic/stable - Follows with Dr Wooten - Last echo 02/19/23: EF 50-55% w/o new WMA, no change from last echo in 2018 - Continue Amlodipine and Metoprolol, Atorvastatin - HCTZ held for JULISSA on CKD, but since that has now normalized, can resume upon dc Plan Rectal tube as been removed. He is tolerating oral intake. Recommend BRAT/Y diet/low residue for the coming days until stool has bulked back up. He is medically and hemodynamically stable for discharge home today with PCP follow up. Above plan has been d/w Dr. Barney who is in agreement with aforementioned. Total Time Total Time Spent Total Time Spent (In Minutes): >30 minutes Discharge Plan Discharge Items Patient Disposition: Home - Self-Care Reason For Visit: vomiting and diarrhea Discharge Diagnosis: vomiting and diarrhea Activity: Resume your previous activity Non-emergency contact: Primary Care Provider Call non-emergency contact if: you have any medication questions Follow-up/Referrals: Enrique Kelly MD [Primary Care Provider] - Diet: Regular and Low Fiber Addtl Attending Provider Instructions: You were hospitalized due to nausea, vomiting, and diarrhea. You had multiple tests done that did not determine an exact cause for your diarrhea but it is likely a viral illness which caused a gastroenteritis. Now that you are tolerating a regular diet, we continue to encourage that you follow a BRAT diet or low fiber diet. The more fiber you consume, the more likely you are to have loose stools. It is recommended that you consume foods that will help you bulk up your stool such as bananas, apples/applesauce, toast, rice, and yogurt with live cultures (such as Activia or lithuanian yogurt with cultures). You were noted to have a low magnesium level which was corrected but you are being prescribed a magnesium supplement that has been sent to your pharmacy. Please take every day. It is recommended that you follow up with your family doctor within 1 week of discharge or sooner if needed. If you need to purchase protective underwear, you can do so at most pharmacies as well as stores like [employer]. If you have any questions or concerns after you leave the hospital, feel free to contact the nonemergency number listed on your discharge instructions. In the event of a medical emergency, call 911. Pending Studies at Discharge: No Stand-Alone Forms: [facility], Smoking Cessation Medications and DC Order Prescriptions: New Slow-Mag 71.5 mg tablet,delayed release (DR/EC) 71.5 mg PO DAILY Qty: 30 0RF Continued atorvastatin 40 mg tablet 40 mg PO QPM Qty: 90 3RF allopurinol 100 mg tablet 100 mg PO DAILY Qty: 90 3RF pantoprazole 40 mg tablet,delayed release (DR/EC) 40 mg PO DAILY Qty: 90 3RF amlodipine 10 mg tablet 10 mg PO QAM Qty: 90 3RF hydrochlorothiazide 12.5 mg tablet 12.5 mg PO DAILY Qty: 90 3RF metoprolol succinate 50 mg tablet extended release 24 hr 75 mg PO QAM Qty: 135 3RF garlic 1,000 mg capsule 1,000 mg PO DAILY coenzyme Q10 100 mg capsule 100 mg PO QAM aspirin [Aspir-81] 81 mg Tablet,Delayed Release (Dr/Ec) 81 mg PO QPM Discharge Orders: Discharge Order (Routine); Ordered 03/02/23 Ordered By: Zhane Ronquillo Admission Data Admit Date/Time: 03/01/23 12:51 Attending Provider: Maurice Barney Admit Provider: Lukas Soto Primary Care Provider: Enrique Kelly Other Providers: Lukas Soto Coding Level of Care Code 15385 INP/OBS DISCH >30 MIN Diagnoses Gastroenteritis and colitis, viral A08.4 Acute on chronic renal insufficiency N28.9; N18.9 Leukocytosis D72.829 GERD (gastroesophageal reflux disease) K21.9 CAD (coronary artery disease) I25.10
== END 2023-03-02 15:07 | disposition home or self-care (01) ==
LOC: ED 11:20 → 3N 11:20 → SUATTDRO 15:41 → 3N 17:13